=== PATIENT | male | born 1980 | race Caucasian/White ===

== ENCOUNTER → 2016-12-19 | Outpatient (CLI) | payer OTHER ==
[2016-12-19 08:29] LABS: CHLORIDE,CL 106 mmol/L (98-110); SODIUM,NA 139 mmol/L (136-146)
== END ==
LOC: MW.CHIM 07:31
PROVIDERS: ATTEND Internal Medicine
DX: J30.2 Other seasonal allergic rhinitis (principal); E29.1 Testicular hypofunction; E66.3 Overweight; E03.9 Hypothyroidism, unspecified
CPT/HCPCS: 80053; 80061; 83036; 84402; 84403; 84439; 84443; 85025; G0103; 36415

== ENCOUNTER → 2016-12-21 | Outpatient (CLI) | payer OTHER | LOC: MW.CHIM 11:25 | PROVIDERS: ATTEND Internal Medicine | DX: Z78.9 Other specified health status (principal); T88.1XXA Other complications following immunization, not elsewhere classified, initial encounter | CPT/HCPCS: 36415; 86706; 86803 ==

== ENCOUNTER → 2017-03-15 | Day surgery (SDC) | payer OTHER ==
[~2017-03-15] MED LIST: Acetaminophen/HYDROcodone 325-10 MG Tab PO PRN; Dexamethasone 4 MG/ML 5 ML MDV ONE; Lactated Ringers 1,000 ML IV SCH; Lidocaine 2% 5 ML SDV ONE; Midazolam 1 MG/ML 2 ML SDV ONE; Mineral Oil/Petrolatum Ophth Oint 3.5 GM Tube ONE; Ondansetron 4 MG/2 ML SDV ONE; Propofol 200 MG/20 ML SDV ONE; Rocuronium 10 MG/ML 10 ML Syringe ONE; Succinylcholine/Normal Saline 200 MG/10 ML Syringe ONE; ceFAZolin 2 GM in Premix Bag 1 BAG IV SCH; fentaNYL 250 MCG/5 ML SDV ONE
--- NOTE | 2017-03-15 07:33 | PCM.PREANE ---
Preanesthetic Assessment - Anesthesia/Transfusion/Family Hx Anesthesia History: Prior Anesthesia Without Reaction Family History of Anesthesia Reaction: No Transfusion History: No Prior Transfusion(s) - Review of Systems General: No Symptoms Pulmonary: No Symptoms Cardiovascular: No Symptoms Gastrointestinal: No symptoms Neurological: No Symptoms Other: Reports: None - Physical Assessment NPO Status Date: 03/14/17 Height: 1.75 m Weight: 131.542 kg ASA Class: 2 Mental Status: Alert & Oriented x3 Airway Class: Mallampati = 2 Dentition: Reports: Normal Dentition ROM/Head Extension: Full Lungs: Clear to auscultation, Normal respiratory effort Cardiovascular: Regular Rate, Regular Rhythm - Allergies Allergies/Adverse Reactions: Allergies Allergy/AdvReac Type Severity Reaction Status Date / Time No Known Allergies Allergy Verified 05/23/16 13:25 - Acknowledgements Anesthesia Type Planned: General Anesthesia, Regional Block Pt an Appropriate Candidate for the Planned Anesthesia: Yes Alternatives and Risks of Anesthesia Discussed w Pt/Guardian: Yes Pt/Guardian Understands and Agrees with Anesthesia Plan: Yes Additional Comments: isb placed preop for post op pain PreAnesthesia Questionnaire HEENT History: Reports: Allergic Rhinitis Respiratory History: Reports: Asthma, Other (See Below) Other Respiratory History: allergy induced asthma Musculoskeletal History: Reports: Other (See Below) Other Musculoskeletal History: rt shoulder pain Endocrine/Metabolic History: Reports: Hypothyroidism, Obesity/BMI 30+ - Past Surgical History Head Surgeries/Procedures: Reports: None HEENT Surgical History: Reports: Adenoidectomy, Naso-Sinus Surgery, Oral Surgery , Tonsillectomy - SUBSTANCE USE Smoking Status *Q: Former Smoker Tobacco Use Within Last Twelve Months: Snuff/Dip Recreational Drug Use History: No - HOME MEDS Home Medications: Home Meds Albuterol [Ventolin HFA] 1 - 2 puff INH ASDIRECTED PRN 03/09/17 [History] Fluticasone Propionate [Flovent HFA 110 MCG] 2 puff INH ASDIRECTED PRN 03/09/17 [History] Levothyroxine Sodium [Levoxyl] 50 mcg PO DAILY 03/09/17 [History] Loratadine [Claritin] 10 mg PO DAILY PRN 03/09/17 [History] Montelukast Sodium 10 mg PO DAILY 03/09/17 [History] Testosterone Cypionate 0.5 ml IM WEEKLY 03/09/17 [History] - CURRENT (IN HOUSE) MEDS Current Meds: Current Medications Hydrocodone Bitart/Acetaminophen ([place] 325-10 Mg) 1 - 2 tab PO Q4H PRN PRN Reason: Pain Lactated Ringer's (Ringers, Lactated) 1,000 mls @ 100 mls/hr IV ASDIRECTED GIULIANA Last Admin: 03/15/17 07:10 Dose: 100 mls/hr Cefazolin Sodium/Dextrose 2 gm (/ Premix) 50 mls @ 100 mls/hr IV ONCALL GIULIANA Discontinued Medications Dexamethasone (Dexamethasone) Confirm Administered Dose 20 mg .ROUTE .STK-MED ONE Stop: 03/15/17 07:25 Fentanyl (Sublimaze) Confirm Administered Dose 250 mcg .ROUTE .STK-MED ONE Stop: 03/15/17 07:25 Lidocaine (Xylocaine-Mpf 2%) Confirm Administered Dose 5 ml .ROUTE .STK-MED ONE Stop: 03/15/17 07:26 Midazolam HCl (Versed 1 Mg/Ml) Confirm Administered Dose 2 mg .ROUTE .STK-MED ONE Stop: 03/15/17 07:25 Mineral Oil/White Petrolatum (Lacri-Lube S.O.P Oint) Confirm Administered Dose 3.5 gm .ROUTE .STK-MED ONE Stop: 03/15/17 07:27 Ondansetron HCl (Zofran) Confirm Administered Dose 4 mg .ROUTE .STK-MED ONE Stop: 03/15/17 07:25 Propofol (Diprivan 20 Ml) Confirm Administered Dose 200 mg .ROUTE .STK-MED ONE Stop: 03/15/17 07:25 Rocuronium [place] (Zemuron) Confirm Administered Dose 100 mg .ROUTE .STK-MED ONE Stop: 03/15/17 07:25 Succinylcholine Chloride (Succinylcholine In Ns Pf) Confirm Administered Dose 200 mg .ROUTE .STK-MED ONE Stop: 03/15/17 07:25
[2017-03-15 07:39] VITALS: BP 135/86
== END ==
LOC: MW.SDS 06:51
PROVIDERS: ATTEND Orthopaedic Surgery
DX: M25.511 Pain in right shoulder (principal); Z53.9 Procedure and treatment not carried out, unspecified reason
CPT/HCPCS: J1100; J2250; J2405; J2704; J3010; J7120

== ENCOUNTER 2017-03-20 07:53 | Day surgery (SDC) | payer OTHER ==
[~2017-03-20 07:53] MED LIST changes: -Acetaminophen/HYDROcodone 325-10 MG Tab PO PRN; -Dexamethasone 4 MG/ML 5 ML MDV ONE; -Lidocaine 2% 5 ML SDV ONE; -Midazolam 1 MG/ML 2 ML SDV ONE; -Mineral Oil/Petrolatum Ophth Oint 3.5 GM Tube ONE; -Ondansetron 4 MG/2 ML SDV ONE; -Propofol 200 MG/20 ML SDV ONE; -Rocuronium 10 MG/ML 10 ML Syringe ONE; -Succinylcholine/Normal Saline 200 MG/10 ML Syringe ONE; -fentaNYL 250 MCG/5 ML SDV ONE
[2017-03-20] MEDS ORDERED: Acetaminophen/HYDROcodone 325-10 MG Tab PO PRN (08:00)
--- NOTE | 2017-03-20 09:30 | PCM.PREANE ---
Preanesthetic Assessment - Anesthesia/Transfusion/Family Hx Anesthesia History: Prior Anesthesia Without Reaction Transfusion History: No Prior Transfusion(s) - Review of Systems General: No Symptoms Pulmonary: No Symptoms Cardiovascular: No Symptoms Gastrointestinal: No symptoms Neurological: No Symptoms Other: Reports: None - Physical Assessment NPO Status Date: 03/19/17 NPO Status Time: 23:30 O2 Sat by Pulse Oximetry: 97 Respiratory Rate: 16 Vital Signs: Last Vital Signs Temp 98.6 F 03/20/17 08:00 Pulse 98 03/20/17 08:00 Resp 16 03/20/17 08:00 BP 141/84 H 03/20/17 08:00 Pulse Ox 97 03/20/17 08:00 Height: 5 ft 7 in Weight: 127.006 kg ASA Class: 3 Mental Status: Alert & Oriented x3 Airway Class: Mallampati = 2 Dentition: Reports: Normal Dentition Thyro-Mental Finger Breadths: 3 Mouth Opening Finger Breadths: 3 ROM/Head Extension: Full Lungs: Clear to auscultation, Normal respiratory effort Cardiovascular: Regular Rate, Regular Rhythm - Allergies Allergies/Adverse Reactions: Allergies Allergy/AdvReac Type Severity Reaction Status Date / Time No Known Allergies Allergy Verified 05/23/16 13:25 - Anesthesia Plan Free Text/Narrative:: Explained the risks and benefits of Interscalene Block for post-op pain control. Pt agrees and wishes to proceed with that at this time. I also explained GETA and the risks and benefits for surgery and the pt expresses understanding as well. - Acknowledgements Anesthesia Type Planned: General Anesthesia, Regional Block (Right Interscalene block for Post-Op pain controll) Pt an Appropriate Candidate for the Planned Anesthesia: Yes Alternatives and Risks of Anesthesia Discussed w Pt/Guardian: Yes Pt/Guardian Understands and Agrees with Anesthesia Plan: Yes PreAnesthesia Questionnaire HEENT History: Reports: Allergic Rhinitis Cardiovascular History: Reports: None Respiratory History: Reports: Asthma, Other (See Below) Other Respiratory History: allergy induced asthma - (Only uses inhaler 2-3 times per year) Gastrointestinal History: Reports: None Genitourinary History: Reports: None Musculoskeletal History: Reports: Other (See Below) Other Musculoskeletal History: rt shoulder pain Neurological History: Reports: None Psychiatric History: Reports: None Endocrine/Metabolic History: Reports: Hypothyroidism, Obesity/BMI 30+ Hematologic History: Reports: None Immunologic History: Reports: None Oncologic (Cancer) History: Reports: None Dermatologic History: Reports: None - Infectious Disease History Infectious Disease History: Reports: None - Past Surgical History Head Surgeries/Procedures: Reports: None HEENT Surgical History: Reports: Adenoidectomy, Naso-Sinus Surgery, Oral Surgery , Tonsillectomy - SUBSTANCE USE Smoking Status *Q: Former Smoker Tobacco Use Within Last Twelve Months: Snuff/Dip Recreational Drug Use History: No - HOME MEDS Home Medications: Home Meds Albuterol [Ventolin HFA] 1 - 2 puff INH ASDIRECTED PRN 03/09/17 [History] Fluticasone Propionate [Flovent HFA 110 MCG] 2 puff INH ASDIRECTED PRN 03/09/17 [History] Levothyroxine Sodium [Levoxyl] 50 mcg PO DAILY 03/09/17 [History] Loratadine [Claritin] 10 mg PO DAILY PRN 03/09/17 [History] Montelukast Sodium 10 mg PO DAILY 03/09/17 [History] Testosterone Cypionate 0.5 ml IM WEEKLY 03/09/17 [History] - CURRENT (IN HOUSE) MEDS Current Meds: Current Medications Hydrocodone Bitart/Acetaminophen ([place] 325-10 Mg) 1 - 2 tab PO Q4H PRN PRN Reason: Pain Lactated Ringer's (Ringers, Lactated) 1,000 mls @ 100 mls/hr IV ASDIRECTED PENDING SALE TO [facility] Last Admin: 03/20/17 08:09 Dose: 100 mls/hr Cefazolin Sodium/Dextrose 2 gm (/ Premix) 50 mls @ 100 mls/hr IV ONCALL PENDING SALE TO [facility]
[2017-03-20] MEDS ORDERED: Bupivacaine 0.25%/EPINEPHrine 1:200,000 10 ML SDV ONE ×2 (09:32→09:50)
[2017-03-20] MEDS ORDERED: Lidocaine 2% 5 ML SDV ONE (09:37)
[2017-03-20] MEDS ORDERED: Propofol 200 MG/20 ML SDV ONE ×3 (09:38→11:53)
[2017-03-20] MEDS ORDERED: fentaNYL 250 MCG/5 ML SDV ONE (09:38)
[2017-03-20] MEDS ORDERED: Midazolam 1 MG/ML 2 ML SDV ONE (09:38)
[2017-03-20] MEDS ORDERED: Succinylcholine/Normal Saline 200 MG/10 ML Syringe ONE (09:39)
[2017-03-20] MEDS ORDERED: Ketorolac 30 MG/ML SDV ONE (09:39)
[2017-03-20] MEDS ORDERED: Ondansetron 4 MG/2 ML SDV ONE (09:39)
--- NOTE | 2017-03-20 09:40 | PCM.OPNOTE ---
- General Post-Op/Procedure Note Date of Surgery/Procedure: 03/20/17 Operative Procedure(s): R shoulder arthroscopy with SAD, extensive debridement including biceps tenotomy and debridement of RTC Post-Op Diagnosis: R shoulder impingement. R shoulder biceps tendonitis. R shoulder partial RTC tear Anesthesia Technique: General ET Tube, Regional Block Primary Surgeon: Cheryl Scott Restorative Aide: Oswaldo Barton Restorative Aide: Janelle Foley in mLs: 10 Condition: Good Free Text/Narrative:: #[id number]
[2017-03-20] MEDS ORDERED: cefOXitin 1 GM Vial ONE (09:45)
[2017-03-20] MEDS ORDERED: Bupivacaine 0.5% 10 ML SDV ONE (09:49)
--- NOTE | 2017-03-20 09:58 | PCM.POSTAN ---
POST ANESTHESIA ASSESSMENT - MENTAL STATUS Mental Status: alert, oriented - RESPIRATORY Respiratory Status: respiratory rate WNL, airway patent, O2 saturation stable - CARDIOVASCULAR CV Status: pulse rate WNL, blood pressure stable - GASTROINTESTINAL GI Status: no symptoms - PAIN Pain Score: 2 (comfortable) - POST OP HYDRATION Hydration Status: adequate & stable
[2017-03-20] MEDS ORDERED: HYDROmorphone 2 MG/ML Syringe ONE (10:56)
[2017-03-20] MEDS ORDERED: fentaNYL 100 MCG/2 ML SDV IVPUSH PRN (11:35)
[2017-03-20] MEDS ORDERED: HYDROmorphone 2 MG/ML Syringe IVPUSH ONE (11:46)
--- NOTE | 2017-03-20 13:18 | PCM.POSTAN ---
POST ANESTHESIA ASSESSMENT - MENTAL STATUS Mental Status: alert, oriented - RESPIRATORY Respiratory Status: respiratory rate WNL, airway patent, O2 saturation stable - CARDIOVASCULAR CV Status: pulse rate WNL, blood pressure stable - GASTROINTESTINAL GI Status: no symptoms - PAIN Pain Score: 5 (med with 1mg dilaudid in PAR) - POST OP HYDRATION Hydration Status: adequate & stable
[2017-03-20] MEDS ORDERED: diphenhydrAMINE 50 MG/ML SDV IVPUSH PRN (13:37)
[2017-03-20 15:16] VITALS: BP 122/66
--- NOTE | 2017-03-20 15:40 | PCM48HPAN ---
Post Anesthesia Note - EVALUATION WITHIN 48HRS OF ANESTHETIC Vital Signs in Normal Range: Yes Patient Participated in Evaluation: Yes Respiratory Function Stable: Yes Airway Patent: Yes Cardiovascular Function Stable: Yes Hydration Status Stable: Yes Pain Control Satisfactory: Yes Nausea and Vomiting Control Satisfactory: Yes Mental Status Recovered: Yes
--- NOTE | 2017-03-20 19:50 | OR ---
SURGEON: Cheryl Scott MD DATE OF PROCEDURE: 03/20/2017 PREOPERATIVE DIAGNOSES: 1. Right shoulder impingement syndrome. 2. Right shoulder biceps tendinopathy. POSTOPERATIVE DIAGNOSES: 1. Right shoulder impingement syndrome. 2. Right shoulder biceps tendinopathy. 3. Right shoulder partial rotator cuff tear, articular-sided. PROCEDURES: Right shoulder arthroscopy with: 1. Subacromial decompression with release of coracoacromial ligament and acromioplasty. 2. Extensive synovectomy including biceps tenotomy and debridement of partial rotator cuff tear. BROOM MAKER: Oswaldo Barton PA-C and Janelle Foley PA-C. ANESTHESIA: General with interscalene block. ESTIMATED BLOOD LOSS: 5 mL. TOURNIQUET TIME: 0 minutes. COMPLICATIONS: None. DVT PROPHYLAXIS: PAS boots to bilateral lower extremities. IMPLANTS USED: None. BRIEF HISTORY: Lobo is a 36-year-old male, who has had complaint of progressive right shoulder pain. He had failed conservative treatment. Due to his lack of response to conservative treatment, I did recommend surgical intervention. The risks and goals of procedure were discussed with the patient and were documented preoperatively. He agreed to proceed. DESCRIPTION OF PROCEDURE: The patient was properly identified and brought to the operating room. He was transferred from the OR cart and placed on the operating room table in supine position. General anesthesia was administered. An interscalene block had been administered preoperatively. After adequate anesthesia was obtained, the patient was placed into a beach-chair type position. Care was taken to pad all bony prominences. The head was secured. The shoulder did have full range of motion. The right shoulder was then prepped in standard fashion using ChloraPrep solution. It was then sterilely draped. A time-out was performed to ensure correct site and procedure. Preoperative antibiotics were given. The surgical site had been marked preoperatively. A marking pen was used to yvon the bony landmarks. Approximately 30 mL of saline solution was introduced into the glenohumeral joint. A posterior portal arthrotomy was established. Blunt trocar and cannula were introduced into the glenohumeral joint. Camera, inflow, and outflow were assembled. The rotator interval was visualized. This did show signs of synovitis. An anterior portal was then established. Electrocautery was inserted. The subscapularis was visualized and probed and found to be intact. No loose bodies were identified in the subscapular recess. The anterior labrum was then inspected. Minor degenerative fraying was noted anteriorly which was debrided with the electrocautery. A portion of the synovitis in the rotator interval was also resected. The remainder of the anterior labrum appeared intact. The biceps tendon was then visualized. Some longitudinal tearing was noted proximally. No significant synovitis surrounded the tendon. It was pulled into the joint and found to be intact. Its attachment to the superior labrum showed some tearing with evidence of peel back with probing. Due to his preoperative symptoms, along with the intraoperative findings, I elected to proceed with a biceps tenotomy. Electrocautery was used to perform the biceps tenotomy at its insertion into the glenoid labrum. The biceps tendon retracted easily back into the bicipital tendon sheath. The area of attachment was then smoothed. The posterior labrum appeared intact. Both the glenoid and humeral head showed no significant degenerative findings. The axillary pouch was also visualized. This showed minor synovitis with no loose bodies. The arm was then brought into an abducted and externally rotated position. The bare area was noted posteriorly. As I progressed forward, the rotator cuff appeared to be intact. There was some superficial articular-sided fraying of the rotator cuff which measured 1 to 2 mm. It seemed to be more intrasubstance at the insertion. No full-thickness tear was noted. Instruments were then removed from the shoulder. The arm was brought back into a neutral position. Blunt trocar and cannula were introduced into the subacromial space. A lateral portal was established. A shaver was inserted. Extensive bursitis was noted which was resected using a combination of the shaver and electrocautery. The undersurface of the acromion was cleared. The coracoacromial ligament was released anteriorly. He did have type 2 acromion with a large bone spur anteriorly which appeared to be causing impingement. The bursa overlying the rotator cuff was resected. The rotator cuff was extensively probed. No tears were noted. There was not found to be any areas of softening. The rotator cuff appeared intact on the bursal side. Using a 5.0 mm mirna, an acromioplasty was performed. This provided good decompression of the subacromial space. The instruments were then removed from the shoulder. The portal sites were closed with 3-0 nylon. Xeroform gauze was placed over the wound and a bulky dressing was applied. He was awakened from his anesthetic and transferred back to the operating room cart. He was brought to recovery room in stable condition. All needle and sponge counts were correct. MAGO LOPEZ /[id number]
--- NOTE | 2017-03-21 20:33 | PCM48HPAN ---
Post Anesthesia Note - COMMENTS/OBSERVATIONS Free Text/Narrative:: patient arrived to ER tonight with complaints of hiccups since yesterday s/p interscalene block that did not meet sensory level for pain control. Patient placed on thorazine and reglan by ER and sent home. Patient instructed to call if medications do not help
== END 2017-03-20 15:06 | disposition home or self-care (01) ==
LOC: MW.SDS 07:53
PROVIDERS: ATTEND Orthopaedic Surgery
PROC: 0RBJ4ZZ Excision of Right Shoulder Joint, Percutaneous Endoscopic Approach (ICD-10-PCS; principal; 2017-03-20)
PROC: 0RNJ4ZZ Release Right Shoulder Joint, Percutaneous Endoscopic Approach (ICD-10-PCS; 2017-03-20)
PROC: 0LS14ZZ Reposition Right Shoulder Tendon, Percutaneous Endoscopic Approach (ICD-10-PCS; 2017-03-20)
DX: M75.41 Impingement syndrome of right shoulder (principal); M75.21 Bicipital tendinitis, right shoulder; M24.811 Other specific joint derangements of right shoulder, not elsewhere classified; M65.811 Other synovitis and tenosynovitis, right shoulder; E73.9 Lactose intolerance, unspecified; J45.909 Unspecified asthma, uncomplicated; E03.9 Hypothyroidism, unspecified; E66.9 Obesity, unspecified; Z87.891 Personal history of nicotine dependence; Z79.899 Other long term (current) drug therapy; Z91.048 Other nonmedicinal substance allergy status; Z90.89 Acquired absence of other organs; Z98.890 Other specified postprocedural states; Z68.41 Body mass index [BMI] 40.0-44.9, adult
CPT/HCPCS: 29823; 29826; 29828; A9270; J0694; J1170; J1200; J1885; J2250; J2405; J3010; J7120; 01622; 64415; 88304; J2704

== ENCOUNTER 2017-03-21 19:15 | Emergency (ER) | payer OTHER ==
[2017-03-21 19:24] VITALS: BP 153/87
[2017-03-21] MEDS ORDERED: chlorproMAZINE 50 MG/2 ML Amp IM ONE (20:05)
[2017-03-21] MEDS ORDERED: Metoclopramide 10 MG Tab PO ONE ×2 (20:11→20:42)
--- NOTE | 2017-03-21 20:14 | EDM.PDOC ---
ED HPI GENERAL MEDICAL PROBLEM - General Chief Complaint: General Stated Complaint: HICCUPS/AFTER SURGERY Time Seen by Provider: 03/21/17 19:37 Source of Information: Reports: Patient History Limitations: Reports: No Limitations - History of Present Illness INITIAL COMMENTS - FREE TEXT/NARRATIVE: The patient presents reporting that yesterday he had a rotator cuff repair on the right. For anesthesia a scalene block was attempted but it did not work. He thus was intubated and general anesthesia provided. His postop course was uncomplicated except that when he got home he started having pickup's and they have not really let up since. They did stop for a short time only to start up quickly. He was not able to sleep at all last night. He has not gotten his pain under control by taking [place] 10/325 one every 4 hours. - Related Data Allergies Allergy/AdvReac Type Severity Reaction Status Date / Time No Known Allergies Allergy Verified 03/21/17 19:17 Home Meds: Home Meds Albuterol [Ventolin HFA] 1 - 2 puff INH ASDIRECTED PRN 03/09/17 [History] Fluticasone Propionate [Flovent HFA 110 MCG] 2 puff INH ASDIRECTED PRN 03/09/17 [History] Levothyroxine Sodium [Levoxyl] 50 mcg PO DAILY 03/09/17 [History] Loratadine [Claritin] 10 mg PO DAILY PRN 03/09/17 [History] Montelukast Sodium 10 mg PO DAILY 03/09/17 [History] Testosterone Cypionate 0.5 ml IM WEEKLY 03/09/17 [History] Acetaminophen/HYDROcodone [[place] 325-10 MG] 1 - 2 tab PO Q4H PRN #80 tablet [Rx] Metoclopramide [Reglan] 1 tab PO Q6H PRN #15 tablet 03/21/17 [Rx] chlorproMAZINE [Thorazine] 1 tab PO QID PRN #25 tab 03/21/17 [Rx] Past Medical History - Past Health History Medical/Surgical History: Denies Medical/Surgical History HEENT History: Reports: Allergic Rhinitis Cardiovascular History: Reports: None Respiratory History: Reports: Asthma, Other (See Below) Other Respiratory History: allergy induced asthma - (Only uses inhaler 2-3 times per year) Gastrointestinal History: Reports: None Genitourinary History: Reports: None Musculoskeletal History: Reports: Other (See Below) Other Musculoskeletal History: rt shoulder pain Neurological History: Reports: None Psychiatric History: Reports: None Endocrine/Metabolic History: Reports: Hypothyroidism, Obesity/BMI 30+ Hematologic History: Reports: None Immunologic History: Reports: None Oncologic (Cancer) History: Reports: None Dermatologic History: Reports: None - Infectious Disease History Infectious Disease History: Reports: None - Past Surgical History Head Surgeries/Procedures: Reports: None HEENT Surgical History: Reports: Adenoidectomy, Naso-Sinus Surgery, Oral Surgery , Tonsillectomy Social & Family History - Family History Family Medical History: Noncontributory - Tobacco Use Smoking Status *Q: Never Smoker - Caffeine Use Caffeine Use: Reports: Coffee, Soda - Recreational Drug Use Recreational Drug Use: No ED ROS GENERAL - Review of Systems Review Of Systems: ROS reveals no pertinent complaints other than HPI. ED EXAM, GENERAL - Physical Exam Exam: See Below Exam Limited By: No Limitations General Appearance: Alert, No Apparent Distress Ears: Normal External Exam Nose: Normal Inspection Throat/Mouth: Normal Inspection, Normal Oropharynx, No Airway Compromise Head: Atraumatic, Normocephalic Neck: Normal Inspection Respiratory/Chest: No Respiratory Distress, Lungs Clear, Normal Breath Sounds, No Accessory Muscle Use, Other (No hiccups when he was admitted but within 30 minutes he was again hiccuping) Cardiovascular: Normal Peripheral Pulses, Regular Rate, Rhythm, No Murmur GI/Abdominal: Normal Bowel Sounds, Soft Back Exam: Normal Inspection Extremities: Normal Inspection Neurological: Alert, Oriented, No Motor/Sensory Deficits Psychiatric: Normal Affect, Normal Mood Skin Exam: Warm, Dry, Intact, Normal Color, No Rash Lymphatic: No Adenopathy Course - Vital Signs Last Recorded V/S: Last Vital Signs Temp 36.6 C 03/21/17 19:20 Pulse 93 03/21/17 19:20 Resp 18 03/21/17 19:20 BP 153/87 H 03/21/17 19:20 Pulse Ox 96 03/21/17 19:20 - Orders/Labs/Meds Meds: Medications Discontinued Medications Generic Name Dose Route Start Last Admin Trade Name Freq PRN Reason Stop Dose Admin Chlorpromazine HCl 50 mg 03/21/17 20:05 Thorazine IM 03/21/17 20:06 ONETIME ONE - Re-Assessments/Exams Free Text/Narrative Re-Assessment/Exam: 03/21/17 20:14 Marika Alanis CRNA was consulted who also spoke with the lock setter who provided anesthesia yesterday. She and Dr. Manohar Bloom recommended 50 mg of Thorazine and 10 mg of Reglan by mouth. Marika came down to the ER and visited with the patient and his . Departure - Departure Time of Disposition: 20:17 Disposition: Home, Self-Care 01 Condition: Good Clinical Impression: Hiccoughs - Discharge Information Referrals: Nael Mark MD [Primary Care Provider] - David Arellano MD [Physician] - Forms: ED Department Discharge Additional Instructions: 1. Thorazine 1-2 tabs four times daily as needed 2. Reglan 10mg every 6 hours for 1-2 days 3. Please follow-up promptly with your primary care provider if hiccups do not resolve within the next 2-3 days. 4. Stop the Reglan and Thorazine and report promptly to the ER for muscle spasms, jerky movements, tremor, lip smacking, restlessness (extramyramidal effects)
[2017-03-21] MEDS ORDERED: Metoclopramide 10 MG Tab ONE (20:37)
[2017-03-21] MEDS ORDERED: chlorproMAZINE 50 MG Tab PO ONE (20:46)
== END 2017-03-21 21:03 | disposition home or self-care (01) ==
LOC: MW.ED 19:15
DX: R06.6 Hiccough (principal); E03.9 Hypothyroidism, unspecified; E66.9 Obesity, unspecified; Z79.899 Other long term (current) drug therapy; Z98.890 Other specified postprocedural states; Z68.42 Body mass index [BMI] 45.0-49.9, adult; J45.909 Unspecified asthma, uncomplicated
CPT/HCPCS: 96372; 99284; A9270; J3230; 99283